=== PATIENT | female | born 1985 | race Caucasian/White ===

== ENCOUNTER 2021-07-04 16:13 | Emergency (ER) | payer BC, OTHER ==
[~2021-07-04] VITALS: Ht 157.5 cm; Wt 63.5 kg
[2021-07-04] MEDS ORDERED: HYDROCODONE/APAP 5MG-325MG TAB PO NR (16:45)
[2021-07-04] MEDS ORDERED: ONDANSETRON HCL 4 MG ORAL DISINTEGRATING TAB PO NR (16:45)
[2021-07-04] MEDS ORDERED: HYDROCODON-ACE1 EAC9 PO (17:35)
== END 2021-07-04 18:35 | disposition home or self-care (01) ==
LOC: ER 16:35
DX: S52.502A Unspecified fracture of the lower end of left radius, initial encounter for closed fracture (principal); S52.602A Unspecified fracture of lower end of left ulna, initial encounter for closed fracture; W18.30XA Fall on same level, unspecified, initial encounter
CPT/HCPCS: 29125; 73110; 99284; Q0162